=== PATIENT | female | born 1990 | race Caucasian/White ===

== ENCOUNTER 2020-10-27 12:15 | Emergency (ER) | payer OTHER, SELFPAY ==
--- NOTE | ~2020-10-27 | XR_ITS ---
EXAMINATION: XR esophogram water soluble DATE: 10/27/2020 13:03 INDICATION: Dysphagia. TECHNIQUE: The patient drank thick barium, gas-producing crystals, and thin barium. Fluoroscopy of th e hypopharynx and esophagus was performed. Fluoroscopy exposure time was 0.7 minutes. The total numbe r of images was 388. The dose-area product was 2.581 Gy-cm^2. COMPARISON: None. FINDINGS: There is no mass or stricture of the esophagus. A Schatzki ring is noted in the distal esop hagus. Esophageal motility is normal. There is no hiatal hernia. The patient swallowed a barium pill without difficulty. IMPRESSION: 1. Schatzki ring. Reviewed, dictated and finalized at location A. RY ENVELOPE MACHINE OPERATOR IMPRESSION: 1. Schatzki ring.
[2020-10-27 12:19] VITALS: BP 121/75; PULSE 84; RESP 18; TEMP 36.8; O2SAT 100
[2020-10-27] MEDS: SODIUM CHLORIDE 0.9% IV 1,000 ML 999 ML IV CONT (12:25)
--- NOTE | 2020-10-27 13:42 | ED.GENADULT ---
HPI - General Adult General Chief complaint: Unspecified Stated complaint: DIFFICULTY BREATHING Source: patient Mode of arrival: ambulatory Limitations: no limitations History of Present Illness HPI narrative: Patient is a 30-year-old female who notes she had a episode of feelings like something was stuck in her esophagus was eating a cheese stick when it became stuck has irritation in the chest denies any other complaints presents from work per EMS has had similar occurrences in the past has never seen GI is able to tolerate liquids and saliva Related Data Allergies Allergy/AdvReac Type Severity Reaction Status Date / Time No Known Allergies Allergy Verified 10/27/20 12:24 Review of Systems Review of Systems: All systems reviewed & are unremarkable except as noted in HPI and below PMFSH Past Medical History Medical History Healthy adult Social History Social History Smoking status: Former smoker Second hand tobacco smoke exposure: No Smoking end date: 10/21/12 Alcohol intake: never Gender identity (if verbalized by the patient): Female Exam Narrative: Exam Narrative: GENERAL: Well-appearing, well-nourished, and in no acute distress. HEAD: Normocephalic, atraumatic. EYES: PERRLA and EOMI. ENT: Nares clear, no rhinorrhea or epistaxis. Mucous membranes moist. CHEST: Clear to auscultation. No respiratory distress. No wheezes rales or rhonchi HEART: Regular rate and rhythm. No murmur heard. Normal peripheral pulses. ABDOMEN: Soft, nontender, nondistended EXTREMITIES: Normal range of motion. No edema. SKIN: Warm, dry, no rash. NEURO: No focal deficits. Alert and oriented x3. PSYCH: Normal mood and affect. Course Course Emergency Course: Patient in the room no distress able to tolerate secretions will be discharged home with instructions on soft diet and follow-up with gastroenterology Vital Signs Vital signs: Vital Signs Temperature 98.2 F 10/27/20 12:19 Pulse Rate 84 10/27/20 12:19 Respiratory Rate 18 10/27/20 12:19 Blood Pressure 121/75 10/27/20 12:19 Pulse Oximetry 100 10/27/20 12:19 Temperature 98.2 F 10/27/20 12:19 Pulse Rate 84 10/27/20 12:19 Respiratory Rate 18 10/27/20 12:19 Blood Pressure 121/75 10/27/20 12:19 Pulse Oximetry 100 10/27/20 12:19 Medical Decision Making MDM Narrative Medical decision making narrative: ABCs intact vital signs stable will be discharged home with plan follow-up with GI Vital Signs Vital Signs: Vital Signs Temperature 98.2 F 10/27/20 12:19 Pulse Rate 84 10/27/20 12:19 Respiratory Rate 18 10/27/20 12:19 Blood Pressure 121/75 10/27/20 12:19 Pulse Oximetry 100 10/27/20 12:19 Temperature 98.2 F 10/27/20 12:19 Pulse Rate 84 10/27/20 12:19 Respiratory Rate 18 10/27/20 12:19 Blood Pressure 121/75 10/27/20 12:19 Pulse Oximetry 100 10/27/20 12:19 Imaging Data Radiologist's impression: ITS Impressions Esophagus X-Ray 10/27/20 13:23 IMPRESSION: 1. Schatzki ring. Discharge Plan Discharge Clinical Impression: Schatzki's ring of distal esophagus, Esophagus, foreign body Patient Disposition: Home, Self-Care Condition: Stable Instructions: Antibiotic Form, Soft Diet (ED), Esophageal Stricture (ED) Additional Instructions: Follow-up with gastroenterology by phone tomorrow to set up for reevaluation. Go to ER for worsening pain, vomitting, fever/chills, chest pain, shortness of breath, blood in stools or urine, etc. or any other concerns. Follow patient education sheets Take any prescribed medications as directed. Stay well-hydrated If you do not have a drug allergy to tylenol or motrin and can tolerate it then take tylenol or motrin as needed for discomfort/pain. Prescriptions: New famotidine [Pepcid] 20 mg tablet 20 mg PO BID Qty: 1
== END 2020-10-27 14:38 | disposition home or self-care (01) ==
PROVIDERS: Emergency Provider Emergency Medicine; PCP Family Medicine
DX: K22.2 Esophageal obstruction (principal); T18.108A Unspecified foreign body in esophagus causing other injury, initial encounter; X58.XXXA Exposure to other specified factors, initial encounter; Z87.891 Personal history of nicotine dependence
CPT/HCPCS: 74220; 96360; 99283; J7030

== ENCOUNTER 2021-11-08 14:58 | Outpatient (CLI) | payer OTHER, SELFPAY ==
[2021-11-08 19:29] LABS: Hematocrit 40.1 % (37.0-47.0); Hemoglobin 13.7 g/dL (12.0-15.0); Mean Corpuscular HGB Conc 34.2 g/dl (32-36); Mean Corpuscular Hemoglobin 29.6 pg (26-34); Mean Corpuscular Volume 86.6 fl (80-100); Mean Platelet Volume 9.8 fl (7.4-10.4); Platelet Count Result 335 k/mm3 (150-375); Red Blood Count 4.63 M/mm3 (4.2-5.4); Red Cell Distribution Width 11.4 % (11.5-14.5); White Blood Count 8.8 K/mm3 (4.5-10.0)
[2021-11-08 19:45] LABS: Alanine Aminotransferase 31 U/L (4-35); Albumin Level 4.7 g/dL (3.5-5.1); Alkaline Phosphatase 71 U/L (38-126); Anion Gap 10 mmol/L (8-16); Aspartate Amino Transferase 27 U/L (14-36); Bilirubin,Total 0.3 mg/dL (0.2-1.3); Blood Urea Nitrogen 13 mg/dL (7-17); Calcium 9.9 mg/dL (8.4-10.2); Carbon Dioxide 28 mmol/L (22-30); Chloride 100 mmol/L (98-107); Cholesterol 190 mg/dL (0-200); Estimated Glomerular Filt Rate > 60; Glucose 92 mg/dL (65-110); HDL Direct 37 mg/dL; Sodium 138 mmol/L (137-145); Triglycerides 216 mg/dL (<150)
[2021-11-08 20:10] LABS: LDL Cholesterol Direct 122 mg/dL
== END 2021-11-08 14:59 | disposition home or self-care (01) ==
LOC: ANHBWCLAB 14:59
PROVIDERS: PCP Family Medicine; Visit Provider Family Medicine
DX: R06.83 Snoring (principal); R53.83 Other fatigue
CPT/HCPCS: 36415; 80053; 80061; 84443; 85027

== ENCOUNTER 2022-02-17 16:49 | Emergency (ER) | payer OTHER, SELFPAY ==
--- NOTE | 2022-02-17 16:51 | ED.URI ---
HPI - URI/Sore Throat General Chief Complaint: Upper Respiratory Infection Stated Complaint: sore throat Time Seen by Provider: 02/17/22 16:51 Source: patient and RN notes reviewed History of Present Illness HPI Narrative: Patient is a 31-year-old female who presents the urgent care with her 2 children with complaints of sore throat and cough. Patient states that her cough is gotten much better over the last week. Patient has not taken anything [id number] for her symptoms. Denies any fever, nausea, vomiting or headache. No other acute complaints. No acute distress noted. Patient aware of the plan of care. Some parts of this dictation were generated by voice recognition software and may contain typographical and/or grammatical inaccuracies. Related Data Home Medications Medication Instructions Recorded Confirmed montelukast 10 mg PO DAILY 02/17/22 02/17/22 Allergies Allergy/AdvReac Type Severity Reaction Status Date / Time No Known Allergies Allergy Verified 02/17/22 17:27 Review of Systems Review of Systems: CONSTITUTIONAL: Denies fever, chills, or sweats. EYES: Denies visual changes, redness, or discharge. ENT: Denies rhinorrhea, congestion, otalgia. Reports of sore throat CARDIOVASCULAR: Denies chest pain, palpitations, or edema. RESPIRATORY: Reports of mild improving cough GASTROINTESTINAL: Denies abdominal pain, nausea, vomiting, or diarrhea. GENITOURINARY: Denies dysuria or hematuria. SKIN: Denies rash or itching. MUSCULOSKELETAL: Denies back pain, joint pain, or myalgia. NEUROLOGIC: Denies headache, numbness, or weakness. All other systems reviewed are negative, except as documented in HPI. PMFSH Past Medical History Medical History Healthy adult Social History Social History Smoking status: Former smoker Second hand tobacco smoke exposure: No Smoking end date: 10/21/12 Alcohol intake: never Substance use: never Gender identity (if verbalized by the patient): Female Comments At the time of my signature, I reviewed and agree with the nursing past medical, surgical, social, and family history. There is no relevant family history pertinent to the patient complaint. Exam Narrative: GENERAL: This is a well-nourished, well-developed patient, in no apparent distress. HEAD: normocephalic, atraumatic. EYES: PERRL. Sclera clear/white. Vision is grossly intact. EARS: External ears normal, auditory canals clear and without drainage, TMs normal without perforation. Hearing grossly intact. NOSE: External nose normal with no obvious nasal discharge, nares without redness, no rhinorrhea. THROAT: Mucous membranes moist, moderate postnasal drainage. Absent tonsils NECK: Neck supple CARDIOVASCULAR: Regular rate and rhythm without murmurs, gallops, or rubs. RESPIRATORY: Clear to auscultation. Breath sounds equal bilaterally. No wheezes, rales, or rhonchi. SKIN: warm, intact with no suspicious lesions or rash, good texture and turgor. NEURO: awake, alert, and oriented to person, place and time. There were no obvious focal neurologic abnormalities. EXTREMITIES: No clubbing, cyanosis, or edema. Course Course Level of Care: Express Care Visit Vital Signs Vital signs: Vital Signs Temperature 98.2 F 02/17/22 16:55 Pulse Rate 71 02/17/22 16:55 Respiratory Rate 18 02/17/22 16:55 Blood Pressure 112/69 02/17/22 16:55 Pulse Oximetry 100 02/17/22 16:55 Temperature 98.2 F 02/17/22 16:55 Pulse Rate 71 02/17/22 16:55 Respiratory Rate 18 02/17/22 16:55 Blood Pressure 112/69 02/17/22 16:55 Pulse Oximetry 100 02/17/22 16:55 Reviewed MDM - URI/Sore Throat MDM Narrative Medical decision making narrative: Reviewed lab results with the patient. She is aware that strep was negative. We will culture your strep swab and if you wish to call and check on the culture, i
[2022-02-17 16:55] VITALS: BP 112/69; PULSE 71; RESP 18; TEMP 36.8; O2SAT 100
== END 2022-02-17 17:35 | disposition home or self-care (01) ==
PROVIDERS: Emergency Provider Nurse Practitioner Family; PCP Family Medicine
DX: J02.9 Acute pharyngitis, unspecified (principal); Z87.891 Personal history of nicotine dependence
CPT/HCPCS: 87081; 87880; 99213; G0463

== ENCOUNTER 2022-03-04 09:02 | Emergency (ER) | payer OTHER, SELFPAY ==
--- NOTE | 2022-03-04 09:04 | ED.URI ---
HPI - URI/Sore Throat General Stated Complaint: Fever/Cough/Congestioin Time Seen by Provider: 03/04/22 09:05 Source: patient, family and RN notes reviewed History of Present Illness HPI Narrative: Patient is a 31-year-old female who presents the urgent care with complaints of fever, cough and mild congestion since Saturday. States that her and one of her children is positive for influenza. Patient has not taken anything [id number] for her symptoms. No other acute complaints. No acute distress noted. Patient aware of the plan of care. Some parts of this dictation were generated by voice recognition software and may contain typographical and/or grammatical inaccuracies. Related Data Home Medications Medication Instructions Recorded Confirmed montelukast 10 mg PO DAILY 02/17/22 02/17/22 Allergies Allergy/AdvReac Type Severity Reaction Status Date / Time No Known Allergies Allergy Verified 03/04/22 09:36 Review of Systems Review of Systems: CONSTITUTIONAL: Reports of low-grade fevers EYES: Denies visual changes, redness, or discharge. ENT: Reports of nasal congestion without sore throat, otalgia CARDIOVASCULAR: Denies chest pain, palpitations, or edema. RESPIRATORY: Reports a mild cough without dyspnea GASTROINTESTINAL: Denies abdominal pain, nausea, vomiting, or diarrhea. GENITOURINARY: Denies dysuria or hematuria. SKIN: Denies rash or itching. MUSCULOSKELETAL: Denies back pain, joint pain, or myalgia. NEUROLOGIC: Denies headache, numbness, or weakness. All other systems reviewed are negative, except as documented in HPI. PMFSH Past Medical History Medical History Healthy adult Social History Social History Smoking status: Former smoker Second hand tobacco smoke exposure: No Smoking end date: 10/21/12 Alcohol intake: never Substance use: never Gender identity (if verbalized by the patient): Female Comments At the time of my signature, I reviewed and agree with the nursing past medical, surgical, social, and family history. There is no relevant family history pertinent to the patient complaint. Exam Narrative: GENERAL: This is a well-nourished, well-developed patient, in no apparent distress. HEAD: normocephalic, atraumatic. EYES: PERRL. Sclera clear/white. Vision is grossly intact. EARS: External ears normal, auditory canals clear and without drainage, TMs normal without perforation. Hearing grossly intact. NOSE: External nose normal with no obvious nasal discharge, nares without redness, no rhinorrhea. THROAT: Mucous membranes moist, posterior pharynx clear. NECK: Neck supple CARDIOVASCULAR: Regular rate and rhythm without murmurs, gallops, or rubs. RESPIRATORY: Clear to auscultation. Breath sounds equal bilaterally. No wheezes, rales, or rhonchi. SKIN: warm, intact with no suspicious lesions or rash, good texture and turgor. NEURO: awake, alert, and oriented to person, place and time. There were no obvious focal neurologic abnormalities. EXTREMITIES: No clubbing, cyanosis, or edema. Course Course Level of Care: Express Care Visit Vital Signs Vital signs: Vital Signs Temperature 98.8 F 03/04/22 09:13 Pulse Rate 96 03/04/22 09:13 Respiratory Rate 14 03/04/22 09:13 Blood Pressure 119/65 03/04/22 09:13 Pulse Oximetry 97 03/04/22 09:13 Temperature 98.8 F 03/04/22 09:13 Pulse Rate 96 03/04/22 09:13 Respiratory Rate 14 03/04/22 09:13 Blood Pressure 119/65 03/04/22 09:13 Pulse Oximetry 97 03/04/22 09:13 Reviewed MDM - URI/Sore Throat MDM Narrative Medical decision making narrative: Reviewed lab results with the patient. She is aware that flu swab was negative. However due to your exposures in the home, it is likely that you may become increasingly more symptomatic over the next couple days. Use Tylenol/ibuprofen as needed. Use a hum
[2022-03-04 09:13] VITALS: BP 119/65; PULSE 96; RESP 14; TEMP 37.1; O2SAT 97
== END 2022-03-04 09:45 | disposition home or self-care (01) ==
PROVIDERS: Emergency Provider Nurse Practitioner Family; PCP Family Medicine
DX: Z20.828 Contact with and (suspected) exposure to other viral communicable diseases (principal); Z87.891 Personal history of nicotine dependence
CPT/HCPCS: 87804; 99213; G0463

== ENCOUNTER 2022-09-26 13:16 | Outpatient (CLI) | payer BC, SELFPAY ==
--- NOTE | ~2022-09-26 | XR_ITS ---
EXAM: XR abdomen obstructive series DATE: 09/26/2022 13:33 HISTORY: R10.33 - Periumbilical pain . COMPARISON: None available. FINDINGS: Clear lung bases. Normal bowel gas pattern. Enlarged liver. No abnormal abdominal calcific ation. Regional bones and soft tissues normal for age. IMPRESSION: Hepatomegaly. Otherwise normal abdominal radiograph findings. Reviewed, dictated and finalized at location K. ITY ASSURANCE COACH
== END 2022-09-26 13:17 | disposition home or self-care (01) ==
PROVIDERS: PCP Family Medicine; Visit Provider Family Medicine
DX: R16.0 Hepatomegaly, not elsewhere classified (principal)
CPT/HCPCS: 74019

== ENCOUNTER 2022-09-28 07:43 | Outpatient (CLI) | payer BC, SELFPAY ==
--- NOTE | ~2022-09-28 | US_ITS ---
US soft tissue abdomen 09/28/2022 08:25 Indication: Periumbilical pain Procedure: High-resolution ultrasound of the abdomen at the umbilicus Comparison: No prior studies for comparison. Findings: There is bowel which abuts the umbilicus, although does not herniate into the umbilicus. No discrete solid or cystic masses are identified. Impression: 1: Peristalsing bowel located anteriorly abuts the umbilicus, although does not definitely herniate. Consider correlation with CT abdomen for further assessment. Reviewed, dictated and finalized at location A. CHBOARD WIRE WORKER HELPER Impression: 1: Peristalsing bowel located anteriorly abuts the umbilicus, although does not definitely herniate. Consider correlation with CT abdomen for further assessme nt.
== END 2022-09-28 07:44 | disposition home or self-care (01) ==
PROVIDERS: PCP Family Medicine; Visit Provider Family Medicine
DX: R10.33 Periumbilical pain (principal)
CPT/HCPCS: 76705

== ENCOUNTER 2023-08-26 08:21 | Outpatient (CLI) | payer BC, SELFPAY ==
--- NOTE | ~2023-08-26 | XR_ITS ---
EXAMINATION: XR lumbar spine 2-3V DATE: 08/26/2023 08:57 INDICATION: Sacrococcygeal disorders not elsewhere classified TECHNIQUE: Anteroposterior and lateral views of the lumbar spine, and cone-down lateral view of the l umbosacral junction were obtained. COMPARISON: 05/07/2018 FINDINGS: Bone alignment is normal. There is no fracture. There is mild loss of intervertebral disc s pace height at L4-5 and L5-S1. The vertebral body heights are maintained. IMPRESSION: 1. Mild lumbar spondylosis without acute findings. Reviewed, dictated and finalized at location B. PULLER
--- NOTE | ~2023-08-26 | XR_ITS ---
EXAMINATION: XR sacrum coccyx min 2V INDICATION: Sacrococcygeal disorders, not elsewhere classified TECHNIQUE: Three views of the sacrum and coccyx are obtained. COMPARISON: None available FINDINGS: Bone alignment is normal. There is no fracture. No SI joint sclerosis or erosions are ident ified. IMPRESSION: 1. No acute osseous abnormality. Reviewed, dictated and finalized at location B. IES [employer] CRAFTS SALES REPRESENTATIVE
[2023-08-26 19:25] LABS: Hematocrit 43.8 % (37.0-47.0); Hemoglobin 13.9 g/dL (12.0-15.0); Mean Corpuscular HGB Conc 31.7 g/dl (32-36); Mean Corpuscular Hemoglobin 28.5 pg (26-34); Mean Corpuscular Volume 89.8 fl (80-100); Mean Platelet Volume 9.7 fl (7.4-10.4); Platelet Count Result 320 k/mm3 (150-375); Red Blood Count 4.88 M/mm3 (4.2-5.4); Red Cell Distribution Width 12.1 % (11.5-14.5); White Blood Count 6.1 K/mm3 (4.5-10.0)
[2023-08-26 19:59] LABS: Alanine Aminotransferase 19 U/L (6-35); Albumin Level 4.6 g/dL (3.5-5.1); Alkaline Phosphatase 66 U/L (38-126); Anion Gap 6 mmol/L (8-16); Aspartate Amino Transferase 43 U/L (14-36); Bilirubin,Total 0.7 mg/dL (0.2-1.3); Blood Urea Nitrogen 10 mg/dL (7-17); Calcium 9.5 mg/dL (8.4-10.2); Carbon Dioxide 28 mmol/L (22-30); Chloride 104 mmol/L (98-107); Cholesterol 205 mg/dL (0-200); Estimated Glomerular Filt Rate > 60; Glucose 86 mg/dL (65-110); HDL Direct 44 mg/dL; Potassium 4.3 mmol/L (3.4-5.0); Sodium 138 mmol/L (137-145); Triglycerides 107 mg/dL (<150)
[2023-08-26 20:10] LABS: LDL Cholesterol Direct 118 mg/dL
== END 2023-08-26 08:22 | disposition home or self-care (01) ==
LOC: ANHBWCLAB 08:23
PROVIDERS: PCP Family Medicine; Visit Provider Family Medicine
DX: M53.3 Sacrococcygeal disorders, not elsewhere classified (principal); M54.50 Low back pain, unspecified; Z00.00 Encounter for general adult medical examination without abnormal findings
CPT/HCPCS: 36415; 72100; 72220; 80053; 80061; 85027

== ENCOUNTER 2024-08-19 09:25 | Outpatient (CLI) | payer BC, SELFPAY ==
--- NOTE | ~2024-08-19 | XR_ITS ---
EXAMINATION: XR lumbar spine 2-3V DATE: 08/19/2024 09:44 INDICATION: Radiculopathy, site unspecified. TECHNIQUE: 3 views of lumbar spine were obtained. COMPARISON: Lumbar spine radiographs 08/26/2023 FINDINGS: There is 4 degrees dextrocurvature of lumbar spine. Vertebral body heights are normal. Ther e is mildly decreased disc height at L4-L5. There is multilevel mild facet joint osteoarthritis. Ther e is an intrauterine device in expected position. IMPRESSION: 1. Mild lumbar spondylosis. Reviewed, dictated and finalized at location B. IMPRESSION: 1. Mild lumbar spondylosis.
== END 2024-08-19 09:26 | disposition home or self-care (01) ==
PROVIDERS: PCP Family Medicine; Visit Provider Nurse Practitioner Family
DX: M47.816 Spondylosis without myelopathy or radiculopathy, lumbar region (principal)
CPT/HCPCS: 72100

== ENCOUNTER 2024-09-09 09:33 | Outpatient (CLI) | payer BC, SELFPAY ==
--- NOTE | ~2024-09-09 | MR_ITS ---
EXAMINATION: MR lumbar spine wo con DATE: 09/09/2024 09:59 INDICATION: Low back pain. Lumbar radiculopathy. TECHNIQUE: Magnetic resonance imaging (MRI) of the lumbar spine was performed without intravenous con trast. Sequences included sagittal T2-weighted FSE, sagittal T2-weighted FS FSE, sagittal T1-weighted FSE, and axial T2-weighted FSE. COMPARISON: Lumbar spine radiographs 08/19/2024 FINDINGS: There is 3 degrees dextrocurvature of lumbar spine. There is mild chronic anterior wedging of T10 and T11 vertebral bodies. There is mildly decreased disc height at L4-L5 and L5-S1. The distal spinal cord signal intensity is normal. The conus medullaris is at L1. The following disc levels are specifically discussed: L1-L2: The disc does not extend beyond the endplate margin. There is mild bilateral facet joint osteo arthritis. There is no neural foraminal stenosis. There is no central canal stenosis. L2-L3: The disc is mildly bulging. There is mild bilateral facet joint osteoarthritis. There is no ne ural foraminal stenosis. There is no central canal stenosis. L3-L4: There is a left foraminal protrusion. There is severe right and moderate left facet joint oste oarthritis. There is mild left neural foraminal stenosis. There is no central canal stenosis. L4-L5: The disc is bulging and has an annular fissure. There is moderate bilateral facet joint osteoa rthritis. There is mild bilateral neural foraminal stenosis. There is mild central canal stenosis. L5-S1: The disc is bulging. There is mild bilateral facet joint osteoarthritis. There is mild bilater al neural foraminal stenosis. There is mild central canal stenosis. IMPRESSION: 1. Mild lumbar spondylosis. Reviewed, dictated and finalized at location A. RER ELECTROPLATING IMPRESSION: 1. Mild lumbar spondylosis.
== END 2024-09-09 09:34 | disposition home or self-care (01) ==
LOC: GOSHIMG 09:36
PROVIDERS: PCP Anesthesiology Pain Medicine; Visit Provider Nurse Practitioner Family
DX: M47.816 Spondylosis without myelopathy or radiculopathy, lumbar region (principal); Z53.9 Procedure and treatment not carried out, unspecified reason
CPT/HCPCS: 72148

== ENCOUNTER 2024-11-11 09:54 | Outpatient (CLI) | payer BC, SELFPAY ==
--- NOTE | 2024-11-11 12:00 | NEURO_ITS ---
Impression: # Complains of numbness of right lower extremity. ? # Normal motor and sensory Nerve Conduction Study. ? # Normal needle/EMG exam. ? # Clinical correlation recommended. Nerve Conduction Studies Anti Sensory Summary Table ?Stim Site NR Peak (ms) P-T Amp (?V) Site1 Site2 Delta-P (ms) Dist (cm) Parveen (m/s) Left Saphenous Anti Sensory (Ant Med Mall) 14cm ? 3.2 14.1 14cm Ant Med Mall 3.2 0.0 Right Saphenous Anti Sensory (Ant Med Mall) 14cm ? 2.8 16.6 14cm Ant Med Mall 2.8 0.0 Left Sup Fibular Anti Sensory (Ant Lat Mall) 14 cm ? 2.8 14.6 14 cm Ant Lat Mall 2.8 16.0 57 Right Sup Fibular Anti Sensory (Ant Lat Mall) 14 cm ? 2.7 16.0 14 cm Ant Lat Mall 2.7 16.0 59 Left Sural Anti Sensory (Lat Mall) Calf ? 2.9 7.7 Calf Lat Mall 2.9 16.0 55 Right Sural Anti Sensory (Lat Mall) Calf ? 2.9 15.3 Calf Lat Mall 2.9 16.0 55 Motor Summary Table ?Stim Site NR Onset (ms) O-P Amp (mV) Site1 Site2 Delta-0 (ms) Dist (cm) Parveen (m/s) Left Peroneal Motor (Vastus Med) Ankle ? 4.1 0.9 Popit Ankle 8.4 41.0 49 Popit ? 12.5 0.3 Right Peroneal Motor (Vastus Med) Ankle ? 3.7 5.6 Popit Ankle 7.6 40.0 53 Popit ? 11.3 4.7 Left Tibial Motor (Abd Irving Brev) Ankle ? 4.0 5.5 Knee Ankle 8.0 40.0 50 Knee ? 12.0 4.4 Right Tibial Motor (Abd Irving Brev) Ankle ? 3.7 6.4 Knee Ankle 8.1 41.0 51 Knee ? 11.8 4.4 F Wave Studies ?NR F-Lat (ms) L-R F-Lat (ms) Left Peroneal (Mrkrs) (EDB) ? 49.38 0.79 Right Peroneal (Mrkrs) (EDB) ? 48.59 0.79 Left Tibial (Mrkrs) (Abd Hallucis) ? 49.70 0.93 Right Tibial (Mrkrs) (Abd Hallucis) ? 48.76 0.93 EMG ?Side Muscle Nerve Root Ins Act Fibs Amp Dur Recrt Comment Right AntTibialis Dp Br Fibular L4-5 Nml Nml Nml Nml Nml Right Gastroc Tibial S1-2 Nml Nml Nml Nml Nml Right Fibularis Long Sup Br Fibular L5-S1 Nml Nml Nml Nml Nml Right Flex Dig Long Tibial L5-S2 Nml Nml Nml Nml Nml Right Ext Dig Brev Dp Br Fibular L5, S1 Nml Nml Nml Nml Nml Right QuadratusFem QuadFemoris L4-5, S1 Nml Nml Nml Nml Nml Left AntTibialis Dp Br Fibular L4-5 Nml Nml Nml Nml Nml Left Gastroc Tibial S1-2 Nml Nml Nml Nml Nml Left Fibularis Long Sup Br Fibular L5-S1 Nml Nml Nml Nml Nml Left Flex Dig Long Tibial L5-S2 Nml Nml Nml Nml Nml Left Ext Dig Brev Dp Br Fibular L5, S1 Nml Nml Nml Nml Nml Left QuadratusFem QuadFemoris L4-5, S1 Nml Nml Nml Nml Nml MTDD
--- OUTSIDE RECORDS SUMMARY | 2024-11-12 22:54 | XMS_ITS | Data Portability ---
Author Organization [facility] DORINAEve Reza Jackson Address [address] [place] [address] Care Team Providers Care Creative Technologist Name Role Phone FRANTZ MAZA Primary Care Provider Assessment No assessment recorded. Plan of Treatment Reminders Order Date Submit Date Provider Last Modified By Organization Details Last Modified Time Details Appointments None recorded. Lab CMP, serum or plasma 2014 015 [email or web address] [facility], [address] [place] [address], [address], [place], [address], 5 12:15:37 PPD (purified protein derivative) , skin test 2014 015 [facility] In-Office Order, Internal Use Only DO Not Attach Compendium DO Not Attach Compendium, Do Not Delete/merge, [id number] 5 15:17:01 Referral gynecologis t referral 2014 015 [email or web address] Not available 5 11:58:40 Procedures None recorded. Surgeries None recorded. Imaging None recorded. Medication Orders Tubersol 5 tub. unit/0.1 mL intradermal injection solution 2014 015 [facility] Not available 5 11:13:45 Patient TargetsNo targets recorded. Patient InstructionsNo instructions recorded. Reason for Referral Appliance Line Assembler Referral for Ad ult health examination Referring Physician: Frantz Maza, Internal Medicine, Encounter Date: 03/29/2015 Results Created Date Observation Date Name Description Value Unit Range Abnormal Flag Note LastModifiedBy Organization Detail LastModifiedTime 10/06/20 15 10/06/2015 PPD (sandra fied prote in deriv ative ), skin test Result Negati ve Not Available In-Office Order Internal Use Only DO Not Attach Compendium DO Not Attach Compendium, Do Not Delete/merge, [id number] 10/06/2015 15:08:48 Result Notes None recorded. Problems No Known Problems Procedures Surgical History Date Name Laterality Status Provider Name and Address Organization Details Recorded Time Tonsillectomy completed Tone Ware MA [facility] SIF 03/29/2015 11:15:53 Imaging Results None recorded. Procedure Notes None recorded. Medical Equipment None Reported. Allergies No known drug allergies Medications Name Sig Start Date Stop Date Status Note LastModified by Organization Details LastModified Time Tubersol 5 tub. unit/0.1 mL intradermal injection solution Take 0.1 mL by intradermal route. 2014 active Not Available Not Available Not Avai lable Vitals Date Recorded Oxygen saturation Oxygen saturation in Arterial blood by Pulse oximetry Body weight Heart rate Body mass index (BMI) Body height Body temperature Systolic blood pressure Diastolic blood pressure Provider Name and Address Organization Details Last Updated DateTime 5 99 % 99 % 07498.0 40531 g 63 /min 26.4 kg/m2 168.275 cm 99.3 [degF] 90 mm[Hg] 64 mm[Hg] Tone Ware MA [facility] SI 5 11:15:53 Date Recorded Body weight Oxygen saturation Oxygen saturation in Arterial blood by Pulse oximetry Body height Body mass index (BMI) Heart rate Body temperature Systolic blood pressure Diastolic blood pressure Provider Name and Address Organization Details Last Updated DateTime 5 84469.2 31130 g 99 % 99 % 168.275 cm 25.7 kg/m2 93 /min 98 [degF] 106 mm[Hg] 54 mm[Hg] Tone Ware MA [facility] SI 5 15:42:54 Date Recorded Oxygen saturation Oxygen saturation in Arterial blood by Pulse oximetry Body height Body temperature Heart rate Systolic blood pressure Diastolic blood pressure Provider Name and Address Organization Details Last Updated DateTime 5 99 % 99 % 168.275 cm 98.6 [degF] 78 /min 92 mm[Hg] 58 mm[Hg] Tone Ware MA [facility] SI 5 15:07:04 Social History Question Answer Notes LastModified by Organizat ion Details LastModified Time What Is Your Level Of Alcohol Consumption? Occasional Beer-- Once A Month --3 To 4 [email or web address] Information not available 03/29/2015 Sex: Unknown Functional Status None recorded. Mental Status None recorded. Family History Relationship Description Onset Age of this Age Resolved Age Notes LastModified by Organization Details LastModified Time Mother Diabetes mellitus [facility] Not available 2014 16:06:28 Mother Hypertensive disorder [facility] Not available 2014 16:06:28 [facility] 2014 16:06:28 Father Hypercholest erolemia [facility] Not available 2014 16:06:28 Father Hypertensive disorder [facility] Not available 2014 16:06:28 Medical History No medical history recorded. Gynecological HistoryNo gynecological history recorded. Obstetrics History GPAL:G 0 P 0 0 0 0 Past Encounters Encounter ID Performer Location Encounter Start Date Encounter Closed Date Diagnosis/Indication Diagnosis SNOMED-CT Code Diagnosis ICD10 Code Diagnosis Note [id number] ZULY Chen (Adult Med) [address] [place] [address] [phone] 03/29/2015 10:55:17 03/29/2015 13:59:08 Adult health examination [id number] [facility] [address] [place] [address] [phone] 10/04/2015 15:13:53 10/05/2015 10:38:53 History and physical examination, pre-employment 787955656 Z02.1 [id number] MD Lizabeth Song (Adult Med) [address] [place] [address] [phone] 10/06/2015 14:55:27 10/06/2015 18:04:25 Adult health examination 336183271 Z00.00 Health Concerns Section Related Observation LastModified by Organization Detai ls LastModified Time None Recorded Concern Status LastModified by Organization Details LastModified Time None Recorded Advance Directives Directive None Recorded Payers Encounter Date Sequence Insurance Name Policy Number Policy Kathleen Covered Member ID Kathleen Member ID Guarantor Name 03/29/2015 [facility]MEDICAID HMO) Kyung Benjamin [id number] [place] 10/04/2015 [facility]MEDICAID HMO) [place] [id number] [place] 10/06/2015 [facility] (MEDICAID HMO) [place] [id number] [place] Notes Date Note Type Note Provider Name and Address Organization Details Recorded Time 10/04/2015 text/html 1. Work physical . 2. c/o body aches and n, v, d x 1 day. Pt instructed to begin a bland liquid diet. Avoid dairy products and f/u with OB provider. She v/u. Frantz Maza MD Attn: Accounting,[address] [place], [address], [facility] 10/06/2015 11:14:08 10/06/2015 text/html re-valuation and reading of PPD skin test. Frantz Maza MD Attn: Accounting,[address] [facility], [place], [address], [facility] 10/06/2015 15:17:02 OBGyn Episode No OBEpisode recorded.
--- OUTSIDE RECORDS SUMMARY | 2024-11-12 22:54 | XMS_ITS | Clinical Summary ---
Author Organization [facility] Address [address] [place] [address] Phone Care Team Providers Care Ride Attendant Name Role Phone Provider, None Primary Care Provider Unavailabl e Allergies No known active allergies Medications No known medications Immunizations Immunization Administration Dates Next Due TDAP Vaccine 09/18/2016 Social History Tobacco Use Types Packs/Day Years Used Date Smoking Tobacco: Every Day Cigarettes Comments No Sex and Gender Information Value Date Recorded Sex Assigned at Not on file Legal Sex Female 3:15 PM [facility]ER Gender Identity Not on file Sexual Orientation Not on file Last Filed Vital Signs Vital Sign Reading Time Taken Comments Blood Pressure 105/66 09/18/2016 3:24 PM [facility]DOGGER Pulse 68 09/18/2016 3:24 PM [facility]DO[facility]ER Temperature 36.4 ??C (97.5 ??F) 09/18/2016 3:24 PM CS T Respiratory Rate 18 09/18/2016 3:24 PM [facility]DOGGER Oxygen Saturation 98% 09/18/2016 3:24 PM B[facility]DOGGER Inhaled Oxygen Concentration - - Weight 79.4 kg (175 lb) 09/18/2016 3:24 PM BULLDOGGER Height 165.1 cm (5' 5 ) 09/18/2016 3:24 PM BULLDOGGER Body Mass Index 29.12 09/18/2016 3:24 PM BULLDOGGER Plan of Treatment Not on file Insurance [employer] [facility] GENER[facility] Care Teams Ride Attendant Relationship Specialty Start Date End Date Provider, None [place] PCP - General 09/18/16
== END 2024-11-11 09:55 | disposition home or self-care (01) ==
PROVIDERS: PCP Family Medicine; Visit Provider Anesthesiology Pain Medicine
DX: M54.17 Radiculopathy, lumbosacral region (principal); M54.10 Radiculopathy, site unspecified
CPT/HCPCS: 95886; 95911